=== PATIENT | female | born 1975 | race Caucasian/White ===

== ENCOUNTER 2020-03-04 08:04 | Outpatient (CLI) | payer BC, SELFPAY ==
--- NOTE | ~2020-03-04 | MM_ITS ---
EXAMINATION: MM screening danuta BI w sergio HISTORY: Screening mammogram TECHNIQUE: Craniocaudal and mediolateral oblique 3-D tomosynthesis images were obtained and synthetic 2-D images were generated. CAD analysis was submitted and interpreted. COMPARISON: 02/11 2019, 01/24/2018, 12/08/2016 bilateral digital screening mammogram examinations BREAST PARENCHYMAL COMPOSITION: There are scattered areas of fibroglandular density. FINDINGS: There is no evidence of suspicious mass, calcification, or architectural distortion to sugg est malignancy in either breast. There has been no suspicious interval change. IMPRESSION: 1. No mammographic evidence of malignancy. 2. Recommend routine screening mammography in one year. BI-RADS Category 1: Negative Reviewed, dictated and finalized at location A.
== END 2020-03-04 08:05 | disposition home or self-care (01) ==
PROVIDERS: PCP Internal Medicine; Visit Provider Nurse Practitioner
DX: Z12.31 Encounter for screening mammogram for malignant neoplasm of breast (principal)
CPT/HCPCS: 77063; 77067

== ENCOUNTER 2020-09-23 08:37 | Outpatient (CLI) | payer BC, SELFPAY ==
--- NOTE | 2020-09-23 | EST_ITS ---
Patient Info Name: Ciarra Blanca Age: 45 years : 1975 Gender: Female Ht: 63 in Wt: 185 lbs BSA: 1.96 m2 Exam Date: 09/23/2020 11:05 AM Exam Location: [facility] Stress Patient Status: Outpatient Admit Date: 09/23/2020 Staff Ordering Physician: Anmol Slater MD Attending Provider: Anmol Slater MD Exercise Technologist: Raysa Patel CT Exercise Physician: Denton Flowers DO Exam Type: CA stress karoline w NM Study Info A regadenoson stress test was performed. Summary 1. 1. Negative lexiscan stress test for ischemic ST changes by ECG criteria. 2. 2. Stable hemodynamics throughout the test. 3. 3. Nuclear scan to follow and will be reported separately. Please correlate with it. 4. 4. Patient informed of the above results. Protocol: Lexiscan Stress ECG Details Stage: REST Duration (min): 1 min : 0 sec HR (bpm): 88 SBP (mmHg): 141 DBP (mmHg): 102 Stage: REST Duration (min): 6 min : 10 sec HR (bpm): 88 SBP (mmHg): 141 DBP (mmHg): 102 Stage: STAGE 1 Duration (min): 0 min : 59 sec HR (bpm): 146 SBP (mmHg): 131 DBP (mmHg): 85 Stage: RECOVERY Duration (min): 1 min : 0 sec HR (bpm): 135 SBP (mmHg): 131 DBP (mmHg): 85 Stage: RECOVERY Duration (min): 2 min : 0 sec HR (bpm): 130 SBP (mmHg): 131 DBP (mmHg): 85 Stage: RECOVERY Duration (min): 2 min : 49 sec HR (bpm): 116 SBP (mmHg): 148 DBP (mmHg): 81 Rest HR: 88 bpm Peak HR: 146 bpm Rest Sys BP: 141 mmHg Peak Sys BP: 148 mmHg Max Pred HR: 173 bpm % Max Pred HR: 84 % Target HR: 147 bpm Max RPP: 21,608 bpm*mmHg Termination Reason: Completed protocol Cardiac Symptoms: Shortness of breath Total Time: 1 min : 0 sec Rest Roberts BP: 102 mmHg Peak Roberts BP: 81 mmHg Total Dose: 0.4 mg Resting ECG Sinus rhythm. Stress ECG No ST changes. Arrhythmias None. Report Signatures
--- NOTE | ~2020-09-23 | NM_ITS ---
EXAMINATION: NM karoline stress w perfusion DATE: 09/23/2020 12:39 INDICATION: Palpitations. Tachycardia. TECHNIQUE: Rest images were obtained following intravenous administration of 9 mCi Tc99m tetrofosmin (Myoview). The patient was infused intravenously with Lexiscan (regadenoson). Then, 27.5 mCi Tc99m te trofosmin (Myoview) was administered intravenously, and stress images were obtained. Data was reconst ructed into short axis and horizontal and vertical long axis SPECT images. Gated SPECT images were al so obtained. COMPARISON: None. FINDINGS: There is no definite reversible or fixed perfusion abnormality to suggest ischemia or infar ction. There is no segmental wall motion abnormality. Left ventricular ejection fraction measures > 70%. IMPRESSION: 1. No definite ischemia or infarct. 2. Normal left ventricular ejection fraction measuring >70%. Reviewed, dictated and finalized at location A.
--- NOTE | 2020-09-23 09:00 | ECHO_ITS ---
Patient Info Name: Ciarra Blanca Age: 45 years : 1975 Gender: Female Ht: 63 in Wt: 185 lbs BSA: 1.96 m2 HR: 84 bpm BP: 115 / 83 mmHg Technical Quality: Good Exam Date: 09/23/2020 9:20 AM Exam Location: [facility] Pulmonary Patient Status: Outpatient Admit Date: 09/23/2020 Staff Ordering Physician: Anmol Slater MD Firer Locomotive: Preeti Cherry RDCS Attending Provider: Anmol Slater MD Referring Physician: Bryon FLAHERTY; Exam Type: CA echo doppler color flow Study Info Indications - palpitations Complete two-dimensional, color flow and Doppler transthoracic echocardiogram is performed. Summary 1. Complete two-dimensional, color flow and Doppler transthoracic echocardiogram is performed. 2. Left ventricular chamber dimension is normal. 3. Left ventricular systolic function is normal, estimated at 60-65%. 4. The left ventricular diastolic function is grade I diastolic dysfunction. 5. No pulmonary hypertension, estimated pulmonary arterial systolic pressure is 25 mmHg. 6. There is trivial pericardial effusion. Left Ventricle Tissue doppler E/e' is not calculated. Left ventricular chamber dimension is normal. Left ventricular systolic function is normal, estimated at 60-65%. The left ventricular diastolic function is grade I diastolic dysfunction. Right Ventricle Right ventricular chamber dimension is normal. Right ventricular systolic function is normal. Left Atria Left atrial chamber dimension is normal. Right Atria Right atrial chamber dimension is normal. Aortic Valve The aortic valve is trileaflet. There is no aortic valve stenosis. There is no aortic valve regurgitation. Pulmonic Valve There is no pulmonic regurgitation. Mitral Valve There is no mitral valve stenosis. There is no mitral valve regurgitation. Tricuspid Valve There is no tricuspid valve regurgitation. No pulmonary hypertension, estimated pulmonary arterial systolic pressure is 25 mmHg. Pericardium/Pleural There is trivial pericardial effusion. Inferior Vena Cava Normal inferior vena cava with >50% collapse upon inspiration consistent with normal right atrial pressure, 5 mmHg. Aorta The aortic root size at the sinus of Valsalva is normal. Left Ventricular Outflow Tract Name Value Normal LVOT 2D LVOT Diameter 2.0 cm LVOT Doppler LVOT Peak Gradient 6 mmHg LVOT Mean Gradient 3 mmHg LVOT VTI 26 cm LVOT VTI/AV VTI Ratio 1.0 LVOT Stroke Volume 86 ml LVOT CO 17.3 l/min LVOT CI 8.8 l/min/m2 Pulmonic Valve Name Value Normal PV Doppler PV Peak Gradient 5 mmHg Mitral Valve
== END 2020-09-23 08:38 | disposition home or self-care (01) ==
PROVIDERS: PCP Internal Medicine; Visit Provider Internal Medicine
DX: M89.8X1 Other specified disorders of bone, shoulder (principal); R00.2 Palpitations; Z82.49 Family history of ischemic heart disease and other diseases of the circulatory system; R06.00 Dyspnea, unspecified
CPT/HCPCS: 78452; 93017; 93306; A9502

== ENCOUNTER 2021-03-22 07:19 | Outpatient (CLI) | payer BC, SELFPAY ==
--- NOTE | ~2021-03-22 | MM_ITS ---
EXAMINATION: MM screening [facility] BI w sergio HISTORY: Screening mammogram TECHNIQUE: Craniocaudal and mediolateral oblique 3-D tomosynthesis images were obtained and synthetic 2-D images were generated. CAD analysis was submitted and interpreted. COMPARISON: 03/04/2020, 02/11/2019, 01/24/2018 BREAST PARENCHYMAL COMPOSITION: There are scattered areas of fibroglandular density. FINDINGS: There is no evidence of suspicious mass, calcification, or architectural distortion to sugg est malignancy in either breast. There has been no suspicious interval change. IMPRESSION: 1. No mammographic evidence of malignancy. 2. Recommend routine screening mammography in one year. BI-RADS Category 1: Negative Reviewed, dictated and finalized at location A.
== END 2021-03-22 07:20 | disposition home or self-care (01) ==
LOC: ANHIMG 07:21
PROVIDERS: PCP Internal Medicine; Visit Provider Obstetrics & Gynecology Gynecology
DX: Z12.31 Encounter for screening mammogram for malignant neoplasm of breast (principal)
CPT/HCPCS: 77063; 77067

== ENCOUNTER 2021-08-05 01:51 | Day surgery (SDC) | payer BC, SELFPAY ==
[2021-07-23 11:19] VITALS: BMI 33.5
[2021-08-05 08:04] VITALS: BP 124/88; PULSE 96; RESP 18; TEMP 36.9; O2SAT 100; BMI 34.9
[2021-08-05] MEDS: LACTATED RINGERS 1,000 ML 150 ML IV CONT (08:12)
--- NOTE | 2021-08-05 08:19 | WPDANESEPPF ---
Anes - Initial Pre Proc Eval Procedure: Operation Date: 08/05/21 09:00 Proposed Procedures p Screening Colonoscopy - Devendra Najera MD Date/Time: 08/05/21 08:19 Surgeon: Devendra Najera MD Pre Op Diagnosis: family hx of colon polyps, neoplasm screening Patient Data Age: 46 Gender: F Height: 1.6 m Weight: 89.3 kg Last Vital Signs Temp 36.9 C 08/05/21 08:04 Pulse 96 08/05/21 08:04 Resp 18 08/05/21 08:04 BP 124/88 08/05/21 08:04 Pulse Ox 100 08/05/21 08:04 Allergies Allergy/AdvReac Type Severity Reaction Status Date / Time nifedipine Allergy Severe Hives Verified 08/05/21 08:03 magnesium [From Cardia] AdvReac Severe Other Verified 08/05/21 08:03 potassium chloride AdvReac Severe Other Verified 08/05/21 08:03 [From Cardia] sodium chloride [From Cardia] AdvReac Severe Other Verified 08/05/21 08:03 Home Medications Medication Instructions Recorded Confirmed Type desogestrel-e.estradiol 0.15 1 tablet PO DAILY tablet 06/26/19 07/23/21 History mg-0.02 mg(21)/e.estrad 0.01 mg(5) tablet folic acid 800 mcg tablet 0.8 mg PO DAILY #90 tablet 06/26/19 07/23/21 Rx mecobalamin (vitamin B12) 1,000 1,000 mcg PO DAILY #90 tablet 06/26/19 07/23/21 Rx mcg disintegrating tablet,sublingual omega-3 fatty acids 1,000 mg 3,000 mg PO DAILY cap 06/26/19 07/23/21 History capsule ergocalciferol (vitamin D2) 1,250 1,250 mcg PO .3 times a month cap 07/20/20 07/23/21 History mcg (50,000 unit) capsule vitamin B complex 1 tablet PO DAILY 09/15/20 07/23/21 History metoprolol succinate 50 mg See Rx Instructions .ROUTE 03/02/21 07/23/21 Rx tablet,extended release 24 hr .COMPLEX #90 tablet levothyroxine 137 mcg tablet See Rx Instructions .ROUTE 04/21/21 07/23/21 Rx .COMPLEX #90 tablet lisinopril 20 mg tablet See Rx Instructions .ROUTE 04/21/21 07/23/21 Rx .COMPLEX #90 tablet metformin 500 mg tablet See Rx Instructions .ROUTE 05/24/21 07/23/21 Rx .COMPLEX #180 tablet Patient hx anesthesia problems: none Family hx anesthesia problems: none Results Review: All pre-operative results and documents have been reviewed as part of the pre-operative evaluation. [facility] Past Medical History Medical History BMI 34.0-34.9,adult BMI 35.0-35.9,adult BRBPR (bright red blood per rectum) Elevated homocysteine Encounter for preventive health examination Encounter for routine adult health examination without abnormal findings FHx: colonic polyps Dr. Najera FHx: premature coronary heart disease Follow up Grade I diastolic dysfunction Hx of colonic polyps Pain in scapula Palpitations Surgical History Surgical History (Updated 08/05/21 @ 08:20 by Jason Somers MD) History of section Hx of thyroidectomy Family History Family History Mother Hypertension Family history of diabetes mellitus in first degree relative Family history of cardiovascular disease Family history of heart disease in male family member before age 55 Father Family history of heart disease in male family member before age 55 Family history of cardiovascular disease Sibling Hypertension, Onset Age: 40 Grandparent Acute myocardial infarction, Onset Age: 72 Cerebrovascular accident, Onset Age: 77 Family history of lung cancer, Onset Age: 70 Other Diabetes mellitus Social History Social History Smoking status: Never smoker Alcohol intake: former Substance use: never Substance use type: does not use Living arrangements: with family Spiritual care concerns: No Anes - Eval Final PreProcedure Day of Procedure 08/05/21 08:19 Patient weight: obese Heart: regular rate and rhythm Lungs: clear to auscultation Airway: Mallampati scale class 1 Neurological: alert and oriented Last oral intake: >/= 8 hours
--- NOTE | 2021-08-05 08:42 | WPDGICN ---
Assessment and Plan Assessment and plan (1) FHx: colonic polyps: Code(s): Z83.71 - Family history of colonic polyps Status: Acute Assessment and Plan: Patient has a family history of colon polyps in her mother it is felt that her mother likely had colon cancer as well ultimately. Patient presents for screening exam at 5 year intervals because of this history. GI Consult Note Consult date/time: 08/05/21 08:42 HPI: Ciarra Blanca is a 46 year old female presents for screening colonoscopy. Patient's family history is significant her mother had multiple colon polyps requiring frequent colonoscopies. Ultimately had cancer on her colon requiring resection. Patient presents for surveillance colonoscopy at this time last exam was fiber 6 years ago. Patient reports that her current weight appetite bowel movements are normal she denies abdominal pain. She has had no bleeding. [facility] Past Medical History Medical History BMI 34.0-34.9,adult BMI 35.0-35.9,adult BRBPR (bright red blood per rectum) Elevated homocysteine Encounter for preventive health examination Encounter for routine adult health examination without abnormal findings FHx: colonic polyps Dr. Najera FHx: premature coronary heart disease Follow up Grade I diastolic dysfunction Hx of colonic polyps Pain in scapula Palpitations Surgical History Surgical History (Updated 08/05/21 @ 08:20 by Jason Somers MD) History of section Hx of thyroidectomy Family History Family History Mother Hypertension Family history of diabetes mellitus in first degree relative Family history of cardiovascular disease Family history of heart disease in male family member before age 55 Father Family history of heart disease in male family member before age 55 Family history of cardiovascular disease Sibling Hypertension, Onset Age: 40 Grandparent Acute myocardial infarction, Onset Age: 72 Cerebrovascular accident, Onset Age: 77 Family history of lung cancer, Onset Age: 70 Other Diabetes mellitus Social History Social History Smoking status: Never smoker Alcohol intake: former Substance use: never Substance use type: does not use Living arrangements: with family Spiritual care concerns: No Meds Home Medications and Allergies Home Medications Medication Instructions Recorded Confirmed Type desogestrel-e.estradiol 0.15 1 tablet PO DAILY tablet 06/26/19 07/23/21 History mg-0.02 mg(21)/e.estrad 0.01 mg(5) tablet folic acid 800 mcg tablet 0.8 mg PO DAILY #90 tablet 06/26/19 07/23/21 Rx mecobalamin (vitamin B12) 1,000 1,000 mcg PO DAILY #90 tablet 06/26/19 07/23/21 Rx mcg disintegrating tablet,sublingual omega-3 fatty acids 1,000 mg 3,000 mg PO DAILY cap 06/26/19 07/23/21 History capsule ergocalciferol (vitamin D2) 1,250 1,250 mcg PO .3 times a month cap 07/20/20 07/23/21 History mcg (50,000 unit) capsule vitamin B complex 1 tablet PO DAILY 09/15/20 07/23/21 History metoprolol succinate 50 mg See Rx Instructions .ROUTE 03/02/21 07/23/21 Rx tablet,extended release 24 hr .COMPLEX #90 tablet levothyroxine 137 mcg tablet See Rx Instructions .ROUTE 04/21/21 07/23/21 Rx .COMPLEX #90 tablet lisinopril 20 mg tablet See Rx Instructions .ROUTE 04/21/21 07/23/21 Rx .COMPLEX #90 tablet metformin 500 mg tablet See Rx Instructions .ROUTE 05/24/21 07/23/21 Rx .COMPLEX #180 tablet Allergies Allergy/AdvReac Type Severity Reaction Status Date / Time nifedipine Allergy Severe Hives Verified 08/05/21 08:03 magnesium [From Cardi] AdvReac Severe Other Verified 08/05/21 08:03 potassium chloride AdvReac Severe Other Verified 08/05/21 08:03 [From Cardia] sodium chloride [From Cardia] AdvReac Severe Other Verified 08/05/21 08
[2021-08-05 09:11] VITALS: BP 113/71; PULSE 97; RESP 19; O2SAT 99
[2021-08-05 09:21] VITALS: BP 115/76; PULSE 85; RESP 17; O2SAT 100
[2021-08-05 09:31] VITALS: BP 136/89; PULSE 80; RESP 17; O2SAT 99
== END 2021-08-05 09:42 | disposition home or self-care (01) ==
PROVIDERS: PCP Internal Medicine; Visit Provider Internal Medicine Gastroenterology
PROC: 0DJD8ZZ Inspection of Lower Intestinal Tract, Via Natural or Artificial Opening Endoscopic (ICD-10-PCS; CPT 45378; principal; 2021-08-05 09:00)
DX: Z12.11 Encounter for screening for malignant neoplasm of colon (principal); Z83.71 Family history of colonic polyps; E66.9 Obesity, unspecified; Z68.34 Body mass index [BMI] 34.0-34.9, adult
CPT/HCPCS: 45378; J2704; J7120

== ENCOUNTER 2022-02-02 10:15 | Outpatient (CLI) | payer BC, SELFPAY ==
[2022-02-02 11:21] LABS: Appearance Urine Clear (Clear); Bilirubin Urine Negative (Negative); Blood Urine Negative (Negative); Color Urine Yellow (Yellow); Glucose Urine UA Negative (Negative); Ketones Urine Negative (Negative); Leukocyte Esterase Ur Negative LEU/UL (Negative); Nitrate Urine Negative (Negative); Protein Urine Negative (Negative); Urobilinogen Urine 0.2 mg/dL (<2.0)
[2022-02-02 11:42] LABS: Add Urine Microscopic? NO
== END 2022-02-02 10:16 | disposition home or self-care (01) ==
LOC: ANHLAB 10:20
PROVIDERS: PCP Internal Medicine; Visit Provider Internal Medicine
DX: R35.0 Frequency of micturition (principal); R30.0 Dysuria; R39.15 Urgency of urination
CPT/HCPCS: 81003

== ENCOUNTER 2022-02-18 07:36 | Outpatient (CLI) | payer BC, SELFPAY ==
[2022-02-18 09:18] LABS: Add Urine Microscopic? YES; Appearance Urine Clear (Clear); Bilirubin Urine 1+ (Negative); Blood Urine 2+ (Negative); Color Urine Yellow (Yellow); Glucose Urine UA Negative (Negative); Ketones Urine Trace mg/dL (Negative); Leukocyte Esterase Ur Negative LEU/UL (Negative); Nitrate Urine Negative (Negative); Protein Urine Negative (Negative); Specific Grav Ur 1.025 (1.001-1.035); Urobilinogen Urine 0.2 mg/dL (<2.0)
[2022-02-18 09:22] LABS: Bacteria Urine Trace /hpf; Mucus Urine Rare /lpf; RBC Urine 51-75 /hpf (0-2); WBC Urine 0-3 /hpf
[2022-02-18 09:59] LABS: Creatinine Urine 253.2 mg/dL
[2022-02-18 10:04] LABS: MALB Creatinine Ratio 4.5 mg/g (0-30); Microalbumin Urine Random 11.5 mg/L (0-16.7)
== END 2022-02-18 07:37 | disposition home or self-care (01) ==
PROVIDERS: PCP Internal Medicine; Visit Provider Internal Medicine
DX: R82.998 Other abnormal findings in urine (principal); R35.0 Frequency of micturition
CPT/HCPCS: 81001; 82043

== ENCOUNTER 2022-06-06 07:44 | Outpatient (CLI) | payer BC, SELFPAY ==
--- NOTE | ~2022-06-06 | MM_ITS ---
EXAMINATION: MM screening [facility] BI w sergio HISTORY: Screening TECHNIQUE: Craniocaudal and mediolateral oblique 3-D tomosynthesis images were obtained and synthetic 2-D images were generated. CAD analysis was submitted and interpreted. COMPARISON: Comparison to multiple prior studies sequentially, with oldest reviewed study dated 06/2015. BREAST PARENCHYMAL COMPOSITION: FINDINGS: There is no evidence of suspicious mass, calcification, or architectural distortion to sugg est malignancy in either breast. There has been no suspicious interval change. IMPRESSION: 1. No mammographic evidence of malignancy. 2. Recommend routine screening mammography in one year. BI-RADS Category 1: Negative Reviewed, dictated and finalized at location A. L ROLLER
== END 2022-06-06 07:45 | disposition home or self-care (01) ==
LOC: ANHIMG 07:46
PROVIDERS: PCP Internal Medicine; Visit Provider Obstetrics & Gynecology Gynecology
DX: Z12.31 Encounter for screening mammogram for malignant neoplasm of breast (principal)
CPT/HCPCS: 77063; 77067

== ENCOUNTER 2024-01-16 10:19 | Outpatient (CLI) | payer BC, SELFPAY ==
--- NOTE | ~2024-01-16 | MM_ITS ---
EXAMINATION: MM screening danuta BI w sergio HISTORY: Screening TECHNIQUE: Craniocaudal and mediolateral oblique 3-D tomosynthesis images were obtained and synthetic 2-D images were generated. CAD analysis was submitted and interpreted. COMPARISON: Comparison to multiple prior studies sequentially, with oldest reviewed study dated 12/08. BREAST PARENCHYMAL COMPOSITION: Not dense: There are scattered areas of fibroglandular density. FINDINGS: There is no evidence of suspicious mass, calcification, or architectural distortion to sugg est malignancy in either breast. There has been no suspicious interval change. IMPRESSION: 1. No mammographic evidence of malignancy. 2. Recommend routine screening mammography in one year. BI-RADS Category 1: Negative Reviewed, dictated and finalized at location B.
== END 2024-01-16 10:20 ==
PROVIDERS: PCP Internal Medicine; Visit Provider Obstetrics & Gynecology Gynecology
DX: Z12.31 Encounter for screening mammogram for malignant neoplasm of breast (principal)
CPT/HCPCS: 77063; 77067

== ENCOUNTER 2024-12-16 10:14 | Outpatient (CLI) | payer BC, SELFPAY ==
--- NOTE | ~2024-12-16 | XR_ITS ---
3 VIEWS LUMBAR SPINE Ordering provider: Anmol Slater MD History: . M54.50 - Low back pain, unspecified . Comparison: None. FINDINGS: VERTEBRAL BODIES: No visible fracture or subluxation. Degenerative changes of the spine. Subluxation of the last segment of the coccyx. DISK SPACES: Slight narrowing of the disc C2-C3. Bilateral facet joint disease at multiple levels. SOFT TISSUES: Normal. IMPRESSION: No acute osseous abnormality lumbar spine. Subluxation of the last segment of the coccyx. Clinical correlation advised. Slight narrowing of the disc L2-L3. Reviewed, dictated and finalized at location A.
--- NOTE | ~2024-12-16 | XR_ITS ---
AP view of the pelvis and AP and lateral views of the bilateral hips Clinical history: Pain Findings: No acute fracture or dislocation is seen. Osseous alignment is anatomic. Bilateral hip and SI joint spaces are preserved. Soft tissues are unremarkable. Impression: No significant abnormality is seen. Reviewed, dictated and finalized at [facility]. Impression: No significant abnormality is seen.
--- NOTE | ~2024-12-16 | XR_ITS ---
XR sacrum coccyx min 2V Ordering provider: Anmol Slater MD History: . M54.50 - Low back pain, unspecified . Comparison: None. FINDINGS: BONES: Minimal subluxation of the last segment of the coccyx is noted. Otherwise, No acute fracture o r dislocation. JOINTS: The sacroiliac joint spaces are slightly narrowed suggestive of sacroiliitis more on the righ t side. SOFT TISSUES: Soft tissues are normal. IMPRESSION: Subluxation of the last segment of the coccyx. No definite fractures seen. Reviewed, dictated and finalized at location A.
--- NOTE | ~2024-12-16 | US_ITS ---
Pelvic ultrasound. Clinical History: Pelvic pain Technique: Realtime transabdominal and transvaginal scanning of the pelvis was performed. Color flow Doppler and Doppler spectral analysis were performed. Findings: The uterus is anteverted, and measures 7.6 x 4.1 x 5.2 cm. The endometrial stripe has a th ickness of 6 mm. No focal mass is identified. Neither ovary seen. No adnexal mass seen. There is no evidence of free fluid in the cul de sac. Impression: Unremarkable uterus. Neither ovary seen. No adnexal mass seen. Reviewed, dictated and finalized at location . Impression: Unremarkable uterus. Neither ovary seen. No adnexal mass seen.
== END 2024-12-16 10:15 | disposition home or self-care (01) ==
PROVIDERS: PCP Internal Medicine; Visit Provider Nurse Practitioner
DX: M99.14 Subluxation complex (vertebral) of sacral region (principal); M51.360 Other intervertebral disc degeneration, lumbar region with discogenic back pain only
CPT/HCPCS: 72110; 72220; 73521; 76830; 76856

== ENCOUNTER 2025-01-20 11:18 | Outpatient (CLI) | payer BC, SELFPAY ==
--- NOTE | ~2025-01-20 | MM_ITS ---
EXAMINATION: screening [facility] BI w sergio INDICATION: Asymptomatic, referred for screening mammogram COMPARISON: 01/16/2024 through 02/11/2019 TECHNIQUE: Digital Breast Tomosynthesis CC, MLO views of Both breasts were obtained with computer-ai ded detection to assist in interpretation of the study. FINDINGS: There are scattered areas of fibroglandular density. There is an asymmetry seen on the cc view in the Lateral at posterior depth in the left breast. Elsewhere, there are no mammographic features of malignancy. IMPRESSION: 1. Left breast Asymmetry. 2. No evidence of malignancy in the Right breast. RECOMMENDATION: Left breast Diagnostic mammogram with true lateral, appropriate spot compression views and an ultraso und if needed. BI-RADS Category 0: Incomplete: Needs additional imaging evaluation. Reviewed, dictated and finalized at location B. IMPRESSION: 1. Left breast Asymmetry. 2. No evidence of malignancy in the Right breast. RECOMMENDATION: Left breast Diagnostic mammogram with true lateral, appropriate spot compressio n views and an ultrasound if needed. BI-RADS Category 0: Incomplete: Needs additional imaging evaluation.
== END 2025-01-20 11:19 | disposition home or self-care (01) ==
PROVIDERS: PCP Internal Medicine; Visit Provider Obstetrics & Gynecology Gynecology
DX: Z12.31 Encounter for screening mammogram for malignant neoplasm of breast (principal); N64.89 Other specified disorders of breast
CPT/HCPCS: 77063; 77067

== ENCOUNTER 2025-02-11 12:38 | Outpatient (CLI) | payer BC, SELFPAY ==
--- NOTE | ~2025-02-11 | DEXA_ITS ---
Bone Density Report Name: ELICIA YBARRA Age: 50 Sex: Female Ethnicity: White Date of : 1975 Indication: screening for osteoporosis; height loss; Referring Provider: NAYANA CASANOVA Study: Bone densitometry was performed. Exam Date: February 11, 2025 Accession number: [id number] Bone Density: Region BMD T-score Z-score Classification AP Spine(L1-L4) 1.003 -0.4 0.5 Normal Femoral Neck (Left) 0.751 -0.9 0.0 Normal Total Hip (Left) 0.949 0.1 0.6 Normal Femoral Neck (Right) 0.729 -1.1 -0.2 Osteopenia Total Hip (Right) 0.892 -0.4 0.1 Normal Total Hip Mean 0.920 -0.2 0.4 Normal World Health Organization criteria for BMD impression classify patients as: Normal (T-score at or above -1.0), Osteopenia (T-score between -1.0 and -2.5), or Osteoporosis (T-score at or below -2.5). 10-year Fracture Risk: FRAX not reported because: Premenopausal woman Clinical Information Provided by Patient: Has used the following medications: Vitamin D, Calcium Patient maximum height was 63 No regular weight bearing exercise Drinks caffeinated beverages Onset of menses at age 11 Premenopausal Number of children 2 Impression: The patient's bone mass is within expected range for age, gender and ethnicity. Discussion: BONE DENSITY IS WITHIN EXPECTED LIMITS FOR AGE, SEX AND RACE. Bone density is within expected limits for age, sex and race at all sites measured. The patient should follow a healthful lifestyle (good nutrition with adequate calcium and vitamin D, and appropriate weight-bearing exercise). Follow-Up: Consider repeating this study in 2 to 3 years to reassess this patient's status, or sooner if there is some new clinical indication. Reported by: EMMA on 02/11/2025 1:28:00 PM. Reviewed, dictated and finalized at location A.
== END 2025-02-11 12:39 | disposition home or self-care (01) ==
LOC: MICIMG 12:39
PROVIDERS: PCP Internal Medicine; Visit Provider Internal Medicine
DX: Z78.0 Asymptomatic menopausal state (principal); M85.851 Other specified disorders of bone density and structure, right thigh
CPT/HCPCS: 77080

== ENCOUNTER 2025-02-28 10:32 | Outpatient (CLI) | payer BC, SELFPAY ==
--- NOTE | ~2025-02-28 | MMUS_ITS ---
EXAMINATION: MM diagnostic danuta LT w sergio, US breast LT limited INDICATION: 50-year old female; BI-RADS 0, callback to evaluate Left breast asymmetry. COMPARISON: 01/20/2025 TECHNIQUE: Digital breast tomosynthesis True lateral and spot compression CC views of the LEFT breast were obtained with computer-aided detection to assist in interpretation of the study. FINDINGS: There are scattered areas of fibroglandular density. The asymmetry of concern in the Lateral left breast partially persists. Ultrasound was performed for further evaluation. LEFT BREAST ULTRASOUND FINDINGS: Targeted evaluation of the area of concern was completed. There is no suspicious solid or cystic mass seen in the lateral left breast. IMPRESSION: Probable Benign LEFT breast asymmetry with no sonographic correlate. Short-term follow-up recommended. RECOMMENDATION: 6 month follow-up diagnostic LEFT mammogram. BI-RADS 3, PROBABLY BENIGN Reviewed, dictated and finalized at location B. IMPRESSION: Probable Benign LEFT breast asymmetry with no sonographic correlate. Short-term follow-up recommended. RECOMMENDATION: 6 month follow-up diagnostic LEFT mammogram. BI-RADS 3, PROBABLY BENIGN
--- OUTSIDE RECORDS SUMMARY | 2025-02-28 11:22 | XMS_ITS | Clinical Summary ---
Author Organization [facility] Address Formerly [facility] [place] [address] Care Team Providers Care Agricultural Engineering Technician Name Role Phone Marisagurvinder Moni MCCLAIN Primary Care Provider [phone] Allergies Active Allergy Reactions Criticality Noted Date Comments Diltiazem Rash,Palpitations Low 08/18/2018 INCREASED HR Nifedipine Hives 08/18/2018 Medications verapamil SR 240 MG tablet 3 9 Active metFORMIN 500 MG tablet Take 500 mg by mouth 2 (two) times daily. 1 8 Active lisinopril 20 MG tablet Take 20 mg by mouth daily. 3 9 Active levothyroxine 137 MCG tablet Take 137 mcg by mouth daily. 1 9 Active vitamin D2, ergocalciferol, 72842 UNITS capsule TK 1 C PO 2 TIMES Q WK 3 8 Active methylPREDNISol one, YUE, 4 MG tablet 6 TABLETS ON DAY ONE, 5 TABLETS DAY TWO, 4 TABLETS DAY THREE, 3 TABLETS DAY FOUR, 2 TABLETS DAY FIVE, AND 1 TABLET DAY SIX 1 each 9 Active triamcinolone 0.1 % cream Apply topically 2 (two) times daily. 30 g 9 Active Family History Medical History Relation Comments Heart Disease Father Diabetes Mother Hypertension Mother Relation Status Comments Father Mother Alive Social History Tobacco Use Types Packs/Day Years Used Date Smoking Tobacco: Never Smokeless Tobacco: Never Alcohol Use Standard Drinks/Week Comments No 0 (1 standard drink = 0.6 oz pur e alcohol) AUDIT-C Answer Date Recorded Frequency of Alcohol Consumption Never 08/18/2018 Average Number of Drinks Not on file 019 Frequency of Binge Drinking Not on file 07/2018 Comments No Sex and Gender Information Value Date Recorded Sex Assigned at Not on file Legal Sex Female 7:43 PM CDT Gender Identity Not on file Sexual Orientation Not on file Last Filed Vital Signs Vital Sign Reading Time Taken Comments Blood Pressure 144/85 08/18/2018 2:47 PM GARAGE ATTENDANT Pulse 120 08/18/2018 2:47 PM GARAGE ATTENDANT Temperature 36.7 C (98 F) 08/18/2018 2:47 PM GARAGE ATTENDANT Respiratory Rate 16 08/18/2018 2:47 PM GARAGE ATTENDANT Oxygen Saturation 98% 08/18/2018 2:47 PM GARAGE ATTENDANT Inhaled Oxygen Concentration - - Weight 90.7 kg (200 lb) 08/18/2018 2:47 PM GARAGE ATTENDANT Height 160 cm (5' 3) 08/18/2018 2:47 PM GARAGE ATTENDANT Body Mass Index 35.43 08/18/2018 2:47 PM GARAGE ATTENDANT Plan of Treatment Health Maintenance Due Date Last Done Comments Cervical Cancer Screening Pa p Smear (Age 30 to 64) Every 3 Years 1973 Colorectal Cancer Screening Colonoscopy (10 Years) 1973 Annual Physical 01/24/1976 Hepatitis C 1991 DTaP, Tdap and Td Vaccines ( 1 - Tdap) 01/24/1992 Hepatitis B Vaccines (1 of 3 - 19+ 3-dose series) 01/24/1992 Cervical Cancer Screening Pa p with HPV Testing (Age 30 to 64) Every 5 Years 2003 Cervical Cancer Screening with HPV 2003 Mammogram Screening 2013 Pneumococcal Vaccine: 50+ Ye ars (1 of 1 - PCV) 2023 Zoster Vaccines (1 of 2) 2023 COVID-19 Vaccine (1 - 2023-2 5 season) 2025 Meningococcal B Vaccine Aged Out No l onger eligible based on patient's age to complete this topic Meningococcal Vaccine Aged Out No vijay abhijeet eligible based on patient's age to complete this topic RSV Immunizations Under 20 Months Aged Out No longer eligible based on patient's age to complete this topic Insurance Care Teams Agricultural Engineering Technician Relationship Specialty Start Date End Date Moni Avalos PA PCP - General 08/18/18
--- OUTSIDE RECORDS SUMMARY | 2025-02-28 11:22 | XMS_ITS | Clinical Summary ---
Author Organization [facility] [employer] Address [address] [place] [address] Care Team Providers Care Playground Director Name Role Phone Unavailable Primary Care Provider Unavailabl e Source Comments [facility] [employer],non-owned Affiliates and Associated Physician Practices is amultiple site organization consisting of ambulatory clinics and hospital sitesin [place], [place], [place] and [place]. This disclosure is being madepursuant to the Care Everywhere program and may not contain all information available regarding this patient. Last updated 18.[facility] [employer] Social History Tobacco Use Types Packs/Day Years Used Date Smoking Tobacco: Never Assessed Comments Unknown Sex and Gender Information Value Date Recorded Sex Assigned at Not on file Legal Sex Female 7:32 AM IMPREGNATOR AND DRIER Gender Identity Not on file Sexual Orientation Not on file Plan of Treatment Health Maintenance Due Date Last Done Comments COLOGUARD (AGES 45-75) - COL ON CA SCREENING 1973 COLON MONITORING 1973 COLONOSCOPY - COLON CA SCREENING 1973 CT COLONOGRAPHY - COLON CA SCREENING 1973 Colorectal Cancer Screening 1973 FIT - COLON CA SCREENING 1973 FLEX SIG - COLON CA SCREENING 1973 LIPID TESTING 1973 MAMMOGRAM 1973 HIV SCREENING 01/24/1988 HEPATITIS C SCREENING 01/19/1991 DTAP/TDAP/TD VACCINES (1 - Tdap) 01/24/1992 HEPATITIS B VACCINE (1 of 3 - 19+ 3-dose series) 01/24/1992 PNEUMOCOCCAL VACCINE 50+ (1 of 1 - PCV) 2023 ZOSTER VACCINE (1 of 2) 2023 DEPRESSION SCREENING 06/19/2024 COVID-19 VACCINE (1 - 2023-2 5 season) 2025 INFLUENZA VACCINE (#1) 2025 HIB VACCINE Aged Out No longer eligi ble based on patient's age to complete this topic HPV VACCINE Aged Out No longer eligi ble based on patient's age to complete this topic MENINGOCOCCAL (Group B) VACC INE SHARED DECISION-MAKING Aged Out No longer eligibl e based on patient's age to complete this topic MENINGOCOCCAL GROUPS A/C/Y/W VACCINE Aged Out No longer eligible b ased on patient's age to complete this topic
== END 2025-02-28 10:33 | disposition home or self-care (01) ==
PROVIDERS: PCP Internal Medicine; Visit Provider Obstetrics & Gynecology Gynecology
DX: R92.8 Other abnormal and inconclusive findings on diagnostic imaging of breast (principal)
CPT/HCPCS: 76642; 77061; 77065; G0279